=== PATIENT | female | born 1960 | race Caucasian/White ===

== ENCOUNTER 2018-01-07 15:13 | Outpatient (CLI) | payer BC ==
[~2018-01-07 15:13] MED LIST: Gadobenate Dimeglumine 529 MG/1 ML (20ML VIAL) ONE
--- NOTE | 2018-01-07 18:20 | MRI ---
MRI BRAIN WITH AND WITHOUT CONTRAST: Date: 01/07/18 HISTORY: Pituitary adenoma. Follow-up exam. COMPARISON: 04/28/11 from [facility]. 08/27/03. TECHNIQUE: Brain and pituitary gland MRI performed with and without intravenous Gadolinium administration. Multi sequential, multiplanar imaging performed. FINDINGS: No parenchymal hemorrhage. No extra-axial hematoma. No parenchymal mass, mass effect, or midline shif t. Brain volume, age-appropriate. Cortical dey-white matter differentiation preserved. Ventricles and sulci are patent and symmetric. No significant white matter hyperintensities on the FLAIR sequence. Central arterial flow-voids are maintained. Absent restricted diffusion. Calvarium has a normal marrow signal intensity. No pathologic enhancement of the brain parenchyma. Mild mucosal disease of the sphenoid sinuses. Adequate mastoid air cell aeration. Redemonstration of a T1 isointense, T2 heterogeneous signal intensity lesion involving the left aspec t of the pituitary gland. On the postcontrast images, there is delayed enhancement. This mass measure s 0.6 cm craniocaudal x 1.1 cm mediolateral x 0.7 cm anterior posterior. There is slight rightward de viation of the pituitary stalk. No significant mass effect upon the optic chiasm or prechiasmatic opt ic nerves. 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 Previously , this pituitary adenoma measured 0.7 x 1.2 x 0.7 cm. POS: [facility]
== END 2018-01-07 15:14 | disposition home or self-care (01) ==
LOC: BICMRI 15:13
PROVIDERS: ATTEND Internal Medicine
DX: D35.2 Benign neoplasm of pituitary gland (principal); E22.1 Hyperprolactinemia
CPT/HCPCS: 70553; A9579

== ENCOUNTER 2019-02-11 12:48 | Outpatient (CLI) | payer BC ==
--- NOTE | 2019-02-11 14:23 | MRI ---
MRI BRAIN WITH AND WITHOUT CONTRAST: HISTORY: Pituitary neoplasm. Macroadenoma. COMPARISON: 01/07/2018 FINDINGS: Gradient echo sequence: No hemorrhage. Calvarium: Appropriate T1 marrow signal intensity. Midline brain parenchyma: Unremarkable. Cerebrum: No parenchymal mass, mass effect or midline shift. Brain volume is age-appropriate. Cortica l dey-white matter differentiation is preserved. Ventricles: No evidence of hydrocephalus. Sinuses and mastoid air cells: Adequate aeration Diffusion: Central arterial flow is maintained. Absent restricted diffusion. Postcontrast images: No pathologic enhancement of the brain parenchyma. Pituitary MRI: Redemonstration of a macroadenoma which appears to be less defined on the current exam ination. Currently, the adenoma measures 0.6 cm mediolateral by 0.9 cm anterior-posterior by 0.6 cm cranial caudal. Adenoma involve the left aspect of the pituitary gland. Minimal rightward deviation o f the pituitary stalk. The prechiasmatic optic nerves and optic chiasm are unremarkable. Grossly, the adenoma measures 0.6 cm craniocaudal by 1.1 cm mediolateral by 0.7 cm anteroposterior. IMPRESSION: Less defined macroadenoma along the left aspect of the pituitary gland. Compared to the previous exam ination, no appreciable change in size. Transcribed Date/Time: 02/11/2019 2:45 PM
== END 2019-02-11 12:49 | disposition home or self-care (01) ==
LOC: BICMRI 12:48
PROVIDERS: ATTEND Internal Medicine Endocrinology, Diabetes & Metabolism
DX: D35.2 Benign neoplasm of pituitary gland (principal)
CPT/HCPCS: 70553

== ENCOUNTER 2022-11-03 07:56 | Outpatient (CLI) | payer BC | END 2022-11-03 07:57 | disposition home or self-care (01) | LOC: BICMRI 07:56 | PROVIDERS: ATTEND Student in an Organized Health Care Education/Training Program | DX: Z12.31 Encounter for screening mammogram for malignant neoplasm of breast (principal); N64.59 Other signs and symptoms in breast | CPT/HCPCS: 77063; 77067; 82565; A9577; C8908 ==

== ENCOUNTER 2023-11-29 15:04 | Outpatient (CLI) | payer BC | END 2023-11-29 15:05 | disposition home or self-care (01) | LOC: BICMAMMO 15:04 | PROVIDERS: ATTEND Student in an Organized Health Care Education/Training Program | DX: Z12.31 Encounter for screening mammogram for malignant neoplasm of breast (principal) | CPT/HCPCS: 77063; 77067 ==

== ENCOUNTER 2023-12-03 15:27 | Outpatient (CLI) | payer BC | END 2023-12-03 15:28 | disposition home or self-care (01) | LOC: BICULT 15:27 | PROVIDERS: ATTEND Family Medicine | DX: E05.20 Thyrotoxicosis with toxic multinodular goiter without thyrotoxic crisis or storm (principal); Z86.39 Personal history of other endocrine, nutritional and metabolic disease | CPT/HCPCS: 76536 ==

== ENCOUNTER 2024-12-02 15:47 | Outpatient (CLI) | payer BC | END 2024-12-02 15:48 | disposition home or self-care (01) | LOC: BICMAMMO 15:47 | PROVIDERS: ATTEND Student in an Organized Health Care Education/Training Program | DX: Z12.31 Encounter for screening mammogram for malignant neoplasm of breast (principal); Z85.820 Personal history of malignant melanoma of skin | CPT/HCPCS: 77063; 77067 ==